=== PATIENT | female | born 1990 | race Caucasian/White ===

== ENCOUNTER 2018-05-02 22:26 | Emergency (ER) | payer OTHER ==
[~2018-05-02] VITALS: Ht 162.6 cm; Wt 61.2 kg
[2018-05-03] MEDS ORDERED: BUTALB-ACETAMI1 EACH PO (01:21)
== END 2018-05-03 01:43 | disposition home or self-care (01) ==
LOC: ER 22:26 → EMR PED 22:39
DX: T88.59XA Other complications of anesthesia, initial encounter (principal); G44.40 Drug-induced headache, not elsewhere classified, not intractable